=== PATIENT | female | born 1965 | race Caucasian/White ===

== ENCOUNTER 2021-08-06 12:03 | Emergency (ER) | payer SELFPAY ==
[~2021-08-06] VITALS: Ht 160 cm; Wt 78.0 kg
[2021-08-06] MEDS ORDERED: HYDROcodone/APAP 5/325MG 1 TAB TABLET PO ONE (12:30)
--- NOTE | 2021-08-06 12:46 | PHYS DOC ---
Past History Past Medical History: No Pertinent History (KARL KESSLER APRN) Past Surgical History: Other (KARL KESSLER APRN) Alcohol Use: Occasionally Drug Use: None (KARL KESSLER APRN) General Adult EDM: Chief Complaint: LOWER EXT PAIN HPI: HPI: Patient is a 55-year-old female who presents with left lower extremity pain. Patient states "it feels very tight and pain is worse under my knee". Patient has history of DVT 20 years ago. Patient states that she has been in bed for the last few days due to just not feeling very well from COVID. Patient's leg does have some discoloration but states that she has a birthmark that goes up from her thigh down to her ankle. Patient's been taking aspirin at home with no relief. (KARL KESSLER APRN) Review of Systems: Review of Systems: ROS At least 10 ROS systems have been reviewed and are negative except as documented in the HPI. General: Negative except as outlined in HPI above. Skin: Negative except as outlined in HPI above. HEENT: Negative except as outlined in HPI above. Neck: Negative except as outlined in HPI above. Respiratory: Negative except as outlined in HPI above.. Cardiovascular: Negative except as outlined in HPI above. Abdomen: Negative except as outlined in HPI above. : Negative except as outlined in HPI above. Back/MSK: Negative except as outlined in HPI above. Neuro: Negative except as outlined in HPI above. Psych: Negative except as outlined in HPI above. (KARL KESSLER APRN) Current Medications: Current Meds: Current Medications Medications (Trade) Dose Ordered Sig/Tyler Start Time Stop Time Status Last Admin Dose Admin Acetaminophen/ Hydrocodone Bitart (Lortab 5/325) 1 tab 1X ONCE 08/06/21 12:30 08/06/21 12:31 DC (KARL KESSLER APRN) Allergies: Allergies: Allergies Coded Allergies Type Severity Reaction Last Updated Verified No Known Drug Allergies 04/07/16 No (KARL KESSLER APRN) Physical Exam: PE: Constitutional: Well developed, well nourished, no acute distress, non-toxic appearance. [] HENT: Normocephalic, atraumatic, bilateral external ears normal, oropharynx moist, no oral exudates, nose normal. [] Eyes: PERRLA, EOMI, conjunctiva normal, no discharge. [] Neck: Normal range of motion, no tenderness, supple, no stridor. [] Cardiovascular:Heart rate regular rhythm, no murmur [] Lungs & Thorax: Bilateral breath sounds clear to auscultation [] Abdomen: Bowel sounds normal, soft, no tenderness, no masses, no pulsatile masses. [] Skin: Warm, dry, no erythema, no rash. [] Back: No tenderness, no CVA tenderness. [] Extremities: Left leg tenderness, ROM intact, mild swelling, pedal pulses intact Neurologic: Alert and oriented X 3, normal motor function, normal sensory function, no focal deficits noted. [] Psychologic: Affect normal, judgement normal, mood normal. [] (KARL KESSLER APRN) Current Patient Data: Vital Signs: Vital Signs Date Time Temp Pulse Resp B/P (MAP) Pulse Ox O2 Delivery O2 Flow Rate FiO2 08/06/21 12:11 97.8 18 143/107 (119) 98 Room Air (KARL KESSLER APRN) EKG: EKG: [] (KARL KESSLER APRN) Radiology/Procedures: Radiology/Procedures: []Left Leg Venous Doppler Ultrasound, 08/06/2021 1:24 PM Indication: Left lower extremity swelling Comparison: None available Procedure: Real-time grayscale, color flow color duplex Doppler and spectral analysis are obtained with and without compression in the area of the common femoral vein, superficial femoral vein - femoral vein junction, main femoral vein (superficial femoral vein) and popliteal vein. Veins of the proximal calf are also imaged. Findings: There is occlusive clot from proximal superficial femoral vein to distal posterior tibial vein and peroneal vein. Portions of the clot. Chronic in the superficial femoral vein and popliteal vein. Impression: Study positive for DVT as outlined above. Electronically signed by: Lizet Dumas MD (08/06/2021 1:49 PM) [facility] (KARL KESSLER APRN) Heart Score: C/O Chest Pain: No Risk Factors: Risk Factors: DM, Current or recent (<one month) smoker, HTN, HLP, family history of CAD, obesity. Risk Scores: Score 0 - 3: 2.5% MACE over next 6 weeks - Discharge Home Score 4 - 6: 20.3% MACE over next 6 weeks - Admit for Clinical Observation Score 7 - 10: 72.7% MACE over next 6 weeks - Early Invasive Strategies (KARL KESSLER APRN) Course & Med Decision Making: Course & Med Decision Making Pertinent Labs and Imaging studies reviewed. (See chart for details) [] 55-year-old female presents with left lower extremity pain that started a few days ago. Patient has had a previous DVT 20 years ago. She has been in bed for the last few days due to being ill with COVID. Patient's leg is red and purple in color but states that she does have a birthmark to goes from her upper leg down to her ankle and that color is similar to usual. Work-up in ER consisted of lower extremity ultrasound rule out DVT. Patient given hydrocodone for pain. Presented positive for DVT. Patient does not have insurance and is concerned about cost. Patient was started on Eliquis and given resources to contact the company for help with prescription cost. Discussed return precautions in length. Patient states she understands. (KARL KESSLER APRN) Dragon Disclaimer: Dragon Disclaimer: This electronic medical record was generated, in whole or in part, using a voice recognition dictation system. (KARL KESSLER APRN) Attending Co-Sign The patient was seen and interviewed as well as examined at the bedside. The chart was reviewed. The case was discussed. Agree with the plan of care. (YEIMY MORRIS DO) Departure Departure: Impression: Primary Impression: DVT (deep venous thrombosis) Qualified Codes: I82.402 - Acute embolism and thrombosis of unspecified deep veins of left lower extremity Disposition: HOME / SELF CARE / HOMELESS Condition: STABLE Referrals: PCP,NO (PCP) Patient Instructions: Deep Vein Thrombosis Additional Instructions: You were seen in the emergency room for left leg pain. Your ultrasound showed a DVT. I am starting you on Eliquis. Also sending home with some pain medication. Please make a follow-up appoint with your PCP in follow-up early next week. They will need to continue your Eliquis since they will be following you I am only giving you a short amount until you can follow back up. So it is important that you make an appointment and get a follow-up for further prescription. Return to the emergency room if you have worsening symptoms or shortness of breath, chest pain. [phone] Eliquis EMERGENCY DEPARTMENT GENERAL DISCHARGE INSTRUCTIONS Thank you for coming to [facility] (ED) today and trusting us with you care. We trust that you had a positivie experience in our Emergency Department. If you wish to speak to the department management, you may call the director at [phone]. YOUR FOLLOW UP INSTRUCTIONS ARE FOLLOWS: 1. Do you have a private Doctor? If you do not have a private doctor, please ask for a resource list of physicians or clinics that may be able to assist you with follow up care. 2. The Emergency Physician has interpreted your x-rays. The X-Ray specialist will also review them. If there is a change in the findings, you will be notified in 48 hours when at all possible. 3. A lab test or culture has been done, your results will be reviewed and you will be notified if you need a change in treatment. ADDITIONAL INSTRUCTIONS AND INFORMATION: 1. Your care today has been supervised by a physician who is specially trained in emergency care. Many problems require more than one evaluation for a complete diagnosis and treatment. We recommend that you schedule your follow up appointment as recommended to ensure complete treatment of you illness or injury. If you are unable to obtain follow up care and continue to have a problem, or if your condition worsens, we recommend that you return to the ED. 2. We are not able to safely determine your condition over the phone nor are we able to give sound medical advice over the phone. For these safety reasons, if you call for medical advice we will ask you to come to the ED for further evaluation. 3. If you have any questions regarding these discharge instructions please call the ED at [phone]. SAFETY INFORMATION: In the interest of safety, wellness, and injury prevention; we encourage you to wear your sealbelt, if you smoke; quite smoking, and we encourage family to use a protective helmet for bicycling and other sporting events that present an increased risk for head injury. IF YOUR SYMPTOMS WORSEN OR NEW SYMPTOMS DEVELOP, OR YOU HAVE CONCERNS ABOUT YOUR CONDITION; OR IF YOUR CONDITION WORSENS WHILE YOU ARE WAITING FOR YOUR FOLLOW UP APPOINTMENT; EITHER CONTACT YOUR PRIMARY CARE DOCTOR, THE PHYSICIAN WHOSE NAME AND NUMBER YOU WERE GIVEN, OR RETURN TO THE ED IMMEDIATELY. Scripts Ondansetron (ONDANSETRON ODT) 4 Mg Tab.rapdis 4 MG PO TID PRN PRN for NAUSEA/VOMITING for 7 Days, #20 TAB Prov: KARL KESSLER APRN 08/06/21 Hydrocodone Bit/Acetaminophen (HYDROCODONE-APAP 5-325 ) 1 Each Tablet 1 TAB PO PRN Q6HRS PRN for PAIN for 7 Days, #20 TAB 0 Refills Prov: KARL KESSLER APRN 08/06/21 Apixaban (ELIQUIS) 5 Mg Tablet 5 MG PO BID for dvt, #74 TAB 10mg BIDx 7 days, 5mg BID Prov: KARL KESSLER APRN 08/06/21 KARL KESSLER APRN Aug 06, 2021 12:46 YEIMY MORRIS DO Aug 07, 2021 06:44
--- NOTE | 2021-08-06 13:51 | RAD ---
Left Leg Venous Doppler Ultrasound, 08/06/2021 1:24 PM Indication: Left lower extremity swelling Comparison: None available Procedure: Real-time grayscale, color flow color duplex Doppler and spectral analysis are obtained w ith and without compression in the area of the common femoral vein, superficial femoral vein - femora l vein junction, main femoral vein (superficial femoral vein) and popliteal vein. Veins of the proxim al calf are also imaged. Findings: There is occlusive clot from proximal superficial femoral vein to distal posterior tibial v ein and peroneal vein. Portions of the clot. Chronic in the superficial femoral vein and popliteal ve in. Impression: Study positive for DVT as outlined above. Electronically signed by: Lizet Dumas MD (08/06/2021 1:49 PM) [facility]
[2021-08-06] MEDS ORDERED: HYDR-2155 PO (14:20)
[2021-08-06] MEDS ORDERED: APIX5TAB3 PO (14:20)
[2021-08-06] MEDS ORDERED: ONDA4TAB12 PO (14:41)
[2021-08-06] MEDS ORDERED: MAGNESIUM CITRATE 296 ML SOLUTION. PO ONE (14:45)
[2021-08-06] MEDS ORDERED: APIXABAN 5 MG TABLET. PO ONE (14:45)
[2021-08-06 16:00] VITALS: BP 108/61
== END 2021-08-06 14:59 | disposition home or self-care (01) ==
LOC: ER 12:03
DX: I82.402 Acute embolism and thrombosis of unspecified deep veins of left lower extremity (principal); Z86.718 Personal history of other venous thrombosis and embolism
CPT/HCPCS: 93971; 99284